=== PATIENT | female | born 1950 | race Two or more races ===

== ENCOUNTER 2017-06-02 18:56 | Emergency (ER) | payer OTHER, MEDICAID ==
[~2017-06-02] VITALS: Ht 157.5 cm; Wt 89.4 kg
[2017-06-02] VITALS (12 sets, daily range): BP systolic 130–162; BP diastolic 66–83
[~2017-06-02 18:56] MED LIST: IBUPROFEN600 MG ORAL; LISINOPRIL10 MG ORAL; METFORMIN HCL500 M1 ORAL
--- NOTE | 2017-06-02 19:11 | Emergency Room Report ---
History of Present Illness General Chief Complaint: Shoulder Injury Source: Patient Present Illness HPI Patient is a 66-year-old female who presented after having increased right shoulder pain. Patient reported having injury right shoulder after raising her arm. She reports having increased difficulty with movement. The patient denies previous shoulder pain. Pain is worse with movement. She reports having prior left-sided shoulder dislocations but has not had dislocated his shoulder in the past. Allergies: Coded Allergies: No Known Allergies (Unverified , 12/27/13) Patient History Past Medical History: see triage record Reviewed Nursing Documentation: PMH: Agreed, PSxH: Agreed Nursing Documentation-PMH Past Medical History: No History, Except For Hx Cardiac Problems: No Hx Hypertension: Yes Hx Pacemaker: No Hx Asthma: No Hx COPD: No Hx Diabetes: Yes Hx Cancer: No Hx Gastrointestinal Problems: No Hx Dialysis: No History Of Psychiatric Problem: No Hx Neurological Problems: No Hx Cerebrovascular Accident: No Hx Seizures: No Review of Systems All Other Systems: negative except mentioned in HPI Physical Exam Vital Signs Date Time Temp Pulse Resp B/P (MAP) Pulse Ox O2 Delivery O2 Flow Rate FiO2 06/02/17 18:59 98.1 81 16 145/75 95 Room Air General Appearance: well appearing, no apparent distress, alert, GCS 15 Head: normocephalic, atraumatic ENT: hearing grossly normal, normal voice Neck: full range of motion, supple Respiratory: no respiratory distress, speaking full sentences Cardiovascular #1: normal inspection, regular rate, rhythm, no edema Gastrointestinal: normal inspection, normal bowel sounds, non tender, soft Musculoskeletal: normal inspection, back normal, no calf tenderness Neurologic: normal inspection, alert, oriented x3, responsive, normal gait Psychiatric: mood/affect normal Skin: no rash Procedures Procedural Sedation Consent: Emergent Time out called at: 20:33 Airway Assessment (Malampati): II Heart: normal Lungs: normal Abdomen: normal Extremities: abnormal Procedures/Plans: Closed Reduction Plan for Moderate Sedation: Propofol ASA Score: II Procedure Narrative A consent was obtained for the procedure. The benefits of the procedure were explained to the patient. The patient agreed to the procedural sedation despite risks. The patient was given propofol in 10 mg increments until the patient was adequately sedated. The patient's procedure was performed without complications. Patient's O2 saturation remained at 99% throughout the entire procedure. Respiratory was at patient's bedside throughout the entire procedure. Patient was observed for approximately 30-45 minutes after the procedure was completed. Total length of the conscious sedation procedure was approximately 45 minutes. There were no complications associated with procedure. Start Time: 20:34 End Time: 20:35 Post-Sedation Assessment The patient is awake alert after her procedure. She reported having improvement pain post procedure x-ray showed adequate shoulder reduction. Communication: No Apparent Limitation Mental Status: Awake Respiration: Unlabored Skin Condition: WNL Abdomen: WNL Nausea: NO Vomiting: NO Medical Decision Making Diagnostic Impression: Primary Impression: shoulder dislocation s/p closed reduction ER Course Patient presented for shoulder pain. Differential diagnoses included was not limited to fracture, dislocation, a.c. separation, septic joint.X-ray imaging showed right shoulder dislocation. The patient was sedated with propofol after being given morphine for pain. The patient's shoulder was reduced with simple downward traction. Post procedure x-ray showed adequate realignment. Patient was advised followup with her orthopedic Dr. for further evaluation. She was given prescription for pain medications. Other X-Ray Diagnostic Results Other X-Ray Diagnostic Results : # of Views/Limited Vs Complete: 3 View Indication: Pain EP Interpretation: Yes Interpretation: no soft tissue swelling, no fractures, other - anterior shoulder dislocation Last Vital Signs Date Time Temp Pulse Resp B/P (MAP) Pulse Ox O2 Delivery O2 Flow Rate FiO2 06/02/17 18:59 98.1 81 16 145/75 95 Room Air Status: improved Disposition: HOME, SELF-CARE Condition: Stable Scripts Hydrocodone Bit/Acetaminophen 5-325* (NORCO 5-325*) 1 Each Tablet 1 TAB ORAL Q6H Y for For Pain, #10 TAB 0 Refills Prov: Man Zhang 06/02/17 Ibuprofen* (MOTRIN*) 600 Mg Tablet 600 MG ORAL Q8H Y for For Pain, #30 TAB Prov: Man Zhang 06/02/17 Man Zhang Jun 02, 2017 19:11
[2017-06-02] MEDS ORDERED: Ketorolac 60mg Inj IM ONE (19:30)
[2017-06-02] MEDS ORDERED: Propofol 200mg/20ml IV ONE ×2 (19:30→20:45)
[2017-06-02] MEDS ORDERED: Morphine Sulfate 4mg/ml Inj IVP ONE (19:45)
[2017-06-02] MEDS ORDERED: IBUPROFEN600 MG ORAL (20:58)
[2017-06-02] MEDS ORDERED: NORCO 5-325 TA1 EACH ORAL (20:58)
--- NOTE | 2017-06-03 11:33 | Diagnostic Imaging Report ---
Indication: Status post reduction Findings: 2 views of the right shoulder were obtained. Comparison: Earlier at 19:23 Exam is technically limited. [id number] is very large and suboptimal. The views obtained are not conventional views. Bones are osteopenic. That said, alignment is now anatomic. There is no obvious fracture or malalignment. Impression: Successful reduction. Study is limited.
--- NOTE | 2017-06-03 11:36 | Diagnostic Imaging Report ---
Indication: Pain Findings: 3 views of the right shoulder were obtained. Anterior dislocation of the right glenohumeral joint noted. No obvious fracture is identified. Impression: Anterior glenohumeral joint dislocation
== END 2017-06-02 21:51 | disposition home or self-care (01) ==
LOC: EMR 19:30
DX: S43.014A Anterior dislocation of right humerus, initial encounter (principal); X50.9XXA Other and unspecified overexertion or strenuous movements or postures, initial encounter; Y92.89 Other specified places as the place of occurrence of the external cause; I10 Essential (primary) hypertension; E11.9 Type 2 diabetes mellitus without complications
CPT/HCPCS: 23655; 73030; 96372; 96374; 96375; 99284; J2270; J2704